=== PATIENT | female | born 1955 | race Caucasian/White ===

== ENCOUNTER → 2016-09-23 | Outpatient (CLI) | payer BC ==
--- NOTE | 2016-09-23 10:33 | US ---
EXAMINATION TYPE: US abdomen complete DATE OF EXAM: 09/23/2016 9:58 AM COMPARISON: 08/07/12 CLINICAL HISTORY: R10.11 RUQ PAIN,R11.0 NAUSEA, Z90.49. Right sided back pain that extends to front o f abd with nausea, cholecystectomy EXAM MEASUREMENTS: Liver Length: 13.9 cm CBD: 0.5 cm Spleen: 9.7 cm Right Kidney: 9.4 x 3.8 x 3.9 cm Left Kidney: 10.9 x 5.3 x 5.2 cm Findings: Pancreas: wnl Liver: wnl, intercostal scanning due to bowel gas Gallbladder: surgically absent CBD: wnl Spleen: wnl Right Kidney: wnl Left Kidney: Parapelvic left renal cysts. No evidence for hydronephrosis. Upper IVC: wnl Abd Aorta: wnl The liver is homogenous. The intrahepatic portion of the IVC and proximal abdominal aorta are within normal limits. The gallbladder is surgically absent. Common bile duct is unremarkable. The visualiz ed portions of the pancreas are homogenous. The spleen is unremarkable. Kidneys are symmetric and f ree of hydronephrosis. Parapelvic left renal cysts. IMPRESSION: 1. Parapelvic left renal cyst without evidence for hydronephrosis.
== END ==
LOC: RADUSWWP 09:35
PROVIDERS: ATTEND Family Medicine
DX: N28.1 Cyst of kidney, acquired (principal); R11.0 Nausea; Z90.49 Acquired absence of other specified parts of digestive tract
CPT/HCPCS: 76700

== ENCOUNTER → 2017-05-12 | Outpatient (CLI) | payer BC ==
--- NOTE | 2017-05-12 12:40 | MM ---
Reason for exam: screening (asymptomatic). Last mammogram was performed 1 year and 1 month ago. History: Patient is postmenopausal. Family history of premenopausal breast cancer in maternal aunt at age 40. Took estrogen for 5 years beginning at age 49. Physical Findings: A clinical breast exam by your physician is recommended on an annual basis and results should be correlated with mammographic findings. MG Screening Mammo w CAD Bilateral CC and MLO view(s) were taken. Prior study comparison: April 24, 2016, bilateral MG screening mammo w CAD. April 19, 2015, bilateral MG screening mammo w CAD. There are scattered fibroglandular densities. No suspicious abnormality. No significant changes when compared with prior studies. ASSESSMENT: Negative, BI-RAD 1 RECOMMENDATION: Routine screening mammogram of both breasts in 1 year.
== END | disposition home or self-care (01) ==
LOC: RADMAMWWP 07:11
PROVIDERS: ATTEND Family Medicine
DX: Z12.31 Encounter for screening mammogram for malignant neoplasm of breast (principal)

== ENCOUNTER → 2018-05-22 | Outpatient (CLI) | payer BC ==
--- NOTE | 2018-05-25 13:35 | MM ---
Reason for exam: screening (asymptomatic). Last mammogram was performed 1 year ago. History: Patient is postmenopausal. Family history of premenopausal breast cancer in maternal aunt at age 40. Took estrogen for 5 years beginning at age 49. Physical Findings: A clinical breast exam by your physician is recommended on an annual basis and results should be correlated with mammographic findings. MG 3D Screening Mammo W/Cad Bilateral CC and MLO view(s) were taken. Prior study comparison: May 12, 2017, bilateral MG screening mammo w CAD. April 24, 2016, bilateral MG screening mammo w CAD. There are scattered fibroglandular densities. Focal asymmetry left breast 6.4cm from nipple. This finding is changed when compared with previous exams. ASSESSMENT: Incomplete: need additional imaging evaluation, BI-RAD 0 RECOMMENDATION: Special view mammogram of the left breast. If lesion persists on supplemental views, image directed ultrasound is recommended. [facility] will attempt to contact patient to return for supplemental views and ultrasound if indicated.
== END | disposition home or self-care (01) ==
LOC: RADMAMWWP 14:19
PROVIDERS: ATTEND Family Medicine
DX: Z12.31 Encounter for screening mammogram for malignant neoplasm of breast (principal)
CPT/HCPCS: 77063; 77067

== ENCOUNTER → 2018-05-26 | Outpatient (CLI) | payer BC ==
--- NOTE | 2018-05-28 08:55 | MM ---
Reason for exam: additional evaluation requested from abnormal screening. Last mammogram was performed less than 1 month ago. History: Patient is postmenopausal. Family history of premenopausal breast cancer in maternal aunt at age 40. Took estrogen for 5 years beginning at age 49. Physical Findings: Nurse did not find any significant physical abnormalities on exam. MG 3D Work Up W/Cad LT Spot compression CC, spot compression MLO, and ML view(s) were taken of the left breast. Prior study comparison: May 22, 2018, bilateral MG 3d screening mammo w/cad. May 12, 2017, bilateral MG screening mammo w CAD. There are scattered fibroglandular densities. No distinct lesion persists on additional views. ASSESSMENT: Negative, BI-RAD 1 RECOMMENDATION: Return to routine screening mammogram schedule for both breasts.
== END | disposition home or self-care (01) ==
LOC: RADMAMWWP 15:39
PROVIDERS: ATTEND Family Medicine
DX: R92.8 Other abnormal and inconclusive findings on diagnostic imaging of breast (principal)
CPT/HCPCS: 77061; 77065

== ENCOUNTER → 2018-08-11 | Outpatient (CLI) | payer BC ==
--- NOTE | 2018-08-11 13:03 | US ---
EXAMINATION TYPE: US abdomen complete DATE OF EXAM: 08/11/2018 COMPARISON: CT abdomen and pelvis dated 05/04/2013. CLINICAL HISTORY: R10.11 right upper quadrant pain. EXAM MEASUREMENTS: Liver Length: 13.3 cm Gallbladder Wall: Surgically absent cm CBD: 0.4 cm Spleen: 9.4 cm Right Kidney: 9.8 x 4.8 x 5.3 cm Left Kidney: 11.9 x 5.4 x 5.8 cm Pancreas: visualized portions wnl Liver: wnl Gallbladder: Surgically absent CBD: wnl Spleen: wnl Right Kidney: No hydronephrosis or masses seen Left Kidney: Cystic structures lower pole, no definite stone seen. Upper IVC: wnl Abd Aorta: wnl The visualized liver is homogenous. The intrahepatic portion of the IVC and visualized distal abdomi nal aorta are within normal limits. There is no evidence of cholelithiasis. Common bile duct is unr emarkable. The visualized portions of the pancreas are homogenous. The spleen is unremarkable. Kid neys are symmetric and free of hydronephrosis. Round anechoic areas centrally lower pole level left k idney correspond to stable simple parapelvic cysts on comparison CT. No new suspicious renal lesions are seen. IMPRESSION: Status post cholecystectomy changes redemonstrated. No acute finding is evident to accoun t for patient's symptoms.
== END | disposition home or self-care (01) ==
LOC: RADUSWWP 07:25
PROVIDERS: ATTEND Family Medicine
DX: R10.11 Right upper quadrant pain (principal); Z90.49 Acquired absence of other specified parts of digestive tract
CPT/HCPCS: 76700

== ENCOUNTER → 2019-09-02 | Outpatient (CLI) | payer BC ==
--- NOTE | 2019-09-03 11:51 | MM ---
Reason for exam: screening (asymptomatic). Last mammogram was performed 1 year and 3 months ago. History: Patient is postmenopausal. Family history of premenopausal breast cancer in maternal aunt at age 40. Took estrogen for 5 years beginning at age 49. Physical Findings: A clinical breast exam by your physician is recommended on an annual basis and results should be correlated with mammographic findings. MG 3D Screening Mammo W/Cad Bilateral CC and MLO view(s) were taken. Prior study comparison: May 26, 2018, left breast MG 3d work up w/cad LT. May 22, 2018, bilateral MG 3d screening mammo w/cad. There are scattered fibroglandular densities. No suspicious abnormality. No significant changes when compared with prior studies. ASSESSMENT: Negative, BI-RAD 1 RECOMMENDATION: Routine screening mammogram of both breasts in 1 year.
== END | disposition home or self-care (01) ==
LOC: RADMAMWWP 07:40
PROVIDERS: ATTEND Family Medicine
DX: Z12.31 Encounter for screening mammogram for malignant neoplasm of breast (principal)
CPT/HCPCS: 77063; 77067

== ENCOUNTER → 2020-05-01 | Outpatient (CLI) | payer BC | END | disposition home or self-care (01) | LOC: LABWHC1 14:22 | PROVIDERS: ATTEND Nurse Practitioner Family | DX: Z20.828 Contact with and (suspected) exposure to other viral communicable diseases (principal) | CPT/HCPCS: U0003; C9803 ==

== ENCOUNTER → 2020-10-17 | Outpatient (CLI) | payer BC ==
--- NOTE | 2020-10-18 14:44 | MM ---
Reason for exam: screening (asymptomatic). Last mammogram was performed 1 year and 2 months ago. History: Patient is postmenopausal. Family history of premenopausal breast cancer in maternal aunt at age 40. Took hormonal contraceptives for 2 years. Took estrogen for 5 years beginning at age 49. Physical Findings: A clinical breast exam by your physician is recommended on an annual basis and results should be correlated with mammographic findings. MG 3D Screening Mammo W/Cad Bilateral CC and MLO view(s) were taken. Prior study comparison: September 02, 2019, bilateral MG 3d screening mammo w/cad. May 26, 2018, left breast MG 3d work up w/cad LT. There are scattered fibroglandular densities. There is no discrete abnormality. No significant changes when compared with prior studies. ASSESSMENT: Negative, BI-RAD 1 RECOMMENDATION: Routine screening mammogram of both breasts in 1 year.
== END | disposition home or self-care (01) ==
LOC: RADMAMWWP 16:10
PROVIDERS: ATTEND Family Medicine
DX: Z12.31 Encounter for screening mammogram for malignant neoplasm of breast (principal)
CPT/HCPCS: 77063; 77067

== ENCOUNTER → 2020-11-09 | Outpatient (CLI) | payer BC | END | disposition home or self-care (01) | LOC: LABWHC1 10:53 | PROVIDERS: ATTEND Family Medicine | DX: R09.81 Nasal congestion (principal) | CPT/HCPCS: U0003; C9803 ==

== ENCOUNTER → 2022-03-18 | Outpatient (CLI) | payer MEDICARE ==
--- NOTE | 2022-03-18 15:50 | MM ---
Reason for Exam: Screening (asymptomatic). Last mammogram was performed 1 year(s) and 5 month(s) ago. Patient History: Menarche at age 13. First Full-Term at age 25. Hysterectomy at age 44. Postmenopausal. Patient has history of breast feeding. Estrogen for 5 years from age 49 until age 54. Patient used Hormonal Contraceptives for 2 years. Maternal aunt had breast cancer, age 40. Risk Values: Ailyn 5 year model risk: 1.5%. NCI Lifetime model risk: 5.6%. Prior Study Comparison: 04/24/2016 Bilateral Screening Mammogram, [facility]. 05/12/2017 Bilateral Screening Mammogram, [facility]. 05/22/2018 Bilateral Screening Mammogram, [facility]. 05/26/2018 Left Diagnostic Mammogram, [facility]. 09/02/2019 Bilateral Screening Mammogram, [facility]. 10/17/2020 Bilateral Screening Mammogram, [facility]. Tissue Density: There are scattered fibroglandular densities. Overall Assessment: Negative, BI-RAD 1 Management: Screening Mammogram of both breasts in 1 year. A clinical breast exam by your physician is recommended on an annual basis and results should be correlated with mammographic findings. Electronically signed and approved by: Yvon Alcantara DO
== END | disposition home or self-care (01) ==
LOC: RADMAMWWP 13:02
PROVIDERS: ATTEND Family Medicine
DX: Z12.31 Encounter for screening mammogram for malignant neoplasm of breast (principal); Z78.0 Asymptomatic menopausal state; Z80.3 Family history of malignant neoplasm of breast
CPT/HCPCS: 77063; 77067

== ENCOUNTER → 2022-04-25 | Outpatient (CLI) | payer MEDICARE ==
--- NOTE | 2022-04-25 10:19 | BD ---
EXAMINATION TYPE: Axial Bone Density DATE OF EXAM: 04/25/2022 COMPARISON: NONE CLINICAL HISTORY: 67 years year old Female. ICD-10 CODE: M19.90, Z87.39 OSTEOPORO Height: 4 FT 11 1/2 IN Weight: 152 FRAX RISK QUESTIONS: Alcohol (3 or more units per day): NO Family History (Parent hip fracture): NO Glucocorticoids (More than 3mos): NO (Ex: prednisone, prednisolone, methylprednisolone, dexamethasone, and hydrocortisone). History of Fracture in Adulthood: NO Secondary Osteoporosis: 1. Type 1 Diabetes: NO 2. Hyperthyroidism: NO 3. Menopause before 45: NO 4. Malnutrition: NO 5. Chronic liver disease: NO Rheumatoid Arthritis: NO Current Tobacco Use: NO RISK FACTORS HISTORY OF: Surgery to Spine/Hip(right/left)/Wrist (right/left): NO Family History of Osteoporosis: NO Active: NO Diet low in dairy products/other sources of calcium: NO Postmenopausal woman: YES Take estrogen and/or progesterone medications: NO Lost more than 2 inches in height since high school: NO Frequent falls: NO Poor Health: GOOD Hyperparathyroidism: NO Adrenal Insufficiency: NO MEDICATIONS: Additional Medications: TOPAMAX, FLONASE Additional History: EXAM MEASUREMENTS: Bone mineral densitometry was performed using the [employer] System. Bone mineral density as measured about the Lumbar spine is: ----- L1-L4(G/cm2): 0.861 T Score Values are as follows: ----- L1: -3.2 ----- L2: -3.4 ----- L3: -2.0 ----- L4: -2.4 ----- L1-L4: -2.7 PREV LONG AGO Bone mineral density about the R hip (g/cm2): 0.689 Bone mineral density about the L hip (g/cm2): 0.634 T Score values are as follows: -----R Neck: -2.5 -----L Neck: -2.9 -----R Total: -1.9 -----L Total: -2.1 PREV LONG AGO FRAX%s: The graph provided illustrates a 15.8 % chance for a major osteoporotic fx and a 4.3 % chance for the hips probability for fx in 10 years time. IMPRESSION: Osteoporosis (T Score less than -2.5). There is increased fracture risk and therapy is usually indicated based on age. Re-Screen 1-2 years. NOTE: T-SCORE=SD OF THE YOUNG ADULT MEAN.
== END | disposition home or self-care (01) ==
LOC: RADBDWWP 09:39
PROVIDERS: ATTEND Family Medicine
DX: M81.0 Age-related osteoporosis without current pathological fracture (principal)
CPT/HCPCS: 77080

== ENCOUNTER → 2023-03-19 | Outpatient (CLI) | payer MEDICARE, OTHER ==
--- NOTE | 2023-03-20 08:54 | MM ---
Reason for Exam: Screening (asymptomatic). Last screening mammogram was performed 12 month(s) ago. Patient History: Menarche at age 13. First Full-Term at age 25. Hysterectomy at age 44. Postmenopausal. Patient has history of breast feeding. Estrogen for 5 years from age 49 until age 54. Patient used Hormonal Contraceptives for 2 years. Maternal aunt had breast cancer, age 40. Risk Values: Ailyn 5 year model risk: 1.5%. NCI Lifetime model risk: 5.4%. Prior Study Comparison: 09/02/2019 Bilateral Screening Mammogram, [facility]. 10/17/2020 Bilateral Screening Mammogram, [facility]. 03/18/2022 Bilateral MG 3D screening mammo w/cad, [facility]. Tissue Density: There are scattered fibroglandular densities. Findings: Analyzed By CAD. There is no suspicious group of microcalcifications or new suspicious mass in either breast. Overall Assessment: Negative, BI-RAD 1 Management: Screening Mammogram of both breasts in [address] [facility] will attempt to contact patient to return for supplemental views and ultrasound if indicated. Patient should continue monthly self-breast exams. A clinical breast exam by your physician is recommended on an annual basis. This exam should not preclude additional follow-up of suspicious palpable abnormalities. Note on Ailyn scores and lifetime risk: 1. A Ailyn score greater than 3% is considered moderate risk. If this is the case, consider specialist referral to assess eligibility for a risk reducing agent. 2. If overall lifetime risk for the development of breast cancer is 20% or higher, the patient may qualify for future screening with alternating mammogram and breast MRI. Electronically signed and approved by: Yvon Alcantara DO
== END | disposition home or self-care (01) ==
LOC: RADMAMWWP 10:43
PROVIDERS: ATTEND Internal Medicine
DX: Z12.31 Encounter for screening mammogram for malignant neoplasm of breast (principal); Z78.0 Asymptomatic menopausal state; Z80.3 Family history of malignant neoplasm of breast
CPT/HCPCS: 77063; 77067

== ENCOUNTER → 2023-03-31 | Outpatient (CLI) | payer MEDICARE, OTHER ==
--- NOTE | 2023-03-31 11:22 | CA ---
Stress Echo Report Luzma Leal Age: 68 Gender: F : 1955 Exam Date: 03/31/2023 10:39 Exam Location: [facility] Ht (in): 59 Wt (lb): 150 Ordering Physician: Gurpreet Veloz MD Referring Physician: MANUELA TOMLIN,, Care Clinician: Syl Mayberry RDCS Technologist Procedure CPT: Indication: R07.89 other chest pain ICD-9 Codes: Rhythm: Patient History: Atypical angina Cardiac Medications: Medications in past 24 hours: Contrast: Stress Results Protocol: Rocky Total dose(mL): Exercise Duration (min:sec): [address] Depression (mm): Angina Score: Watters Score: METS: 7.3 Resting HR: 92 Resting BP: 138 / 90 Peak HR: 162 Peak BP: 192 / 79 Max Predicted HR: 153 106 % Max Predicted HR Target HR: 130 Double Product: 85165 Stress Summary: The patient's target heart rate was achieved BP Response: Normal Reason for Termination: Reached target heart rate or work-load Cardiac Symptoms: Test terminated after reaching target heart rate (85% max predicted) ECG Analysis Resting ECG: Normal sinus rhythm, normal ECG Stress ECG: No abnormal ST/T wave changes with exercise Arrhythmia: None Echo Analysis Resting Echo: Normal resting echocardiogram. Peak Echo Analysis: Normal treadmill stress echocardiogram. MEASUREMENTS (Male/Female) Normal Values CONCLUSIONS No ECG evidence of ischemia with exercise. Normal treadmill stress echocardiogram. Dr. Marian Solares MD (Electronically Signed) Final Date: 31 March 2023 11:21
== END | disposition home or self-care (01) ==
LOC: RADNMMAIN 10:16
PROVIDERS: ATTEND Internal Medicine
DX: R07.89 Other chest pain (principal)
CPT/HCPCS: 93351

== ENCOUNTER → 2023-06-04 | Outpatient (CLI) | payer MEDICARE, OTHER ==
--- NOTE | 2023-06-04 09:06 | MR ---
EXAMINATION TYPE: MR brain wo/w con DATE OF EXAM: 06/04/2023 8:44 AM CLINICAL INDICATION:Female, 68 years old with history of 346.9, G43.09 Migraines, Migraines. COMPARISON: None TECHNIQUE: Multi planar, multi sequence imaging was performed through the brain including: T1, T2, In version recovery, susceptibility weighted imaging and gradient echo imaging and Diffusion weighted im aging. The patient was then given intravenous contrast and multi planar, T1 fat-saturation images wer e obtained. IV Contrast: 6.5 cc Gadavist FINDINGS: The lewis-white junctions, ventricular system, basal cisterns appear unremarkable. Diffusion-weighted imaging shows no evidence of restricted diffusion to suggest acute/subacute infarct. Intracranial ar terial flow voids are maintained. Midline structures show no abnormality. Scattered foci of high T2 s ignal intensity are seen within the periventricular white matter. The susceptibility weighted images do not reveal any evidence for micro-hemorrhage. After administration of gadolinium, no abnormal enha ncement is seen. The bone marrow signal is within normal limits. Paranasal sinuses and mastoid air cells: No significant paranasal sinus disease. Bilateral mastoid ai r cell effusions. Visualized orbits: Orbital contents are intact. IMPRESSION: 1. No evidence of intracranial mass, acute/subacute infarct, or abnormal enhancement. 2. Trace bilateral mastoid air cell effusions.
== END | disposition home or self-care (01) ==
LOC: RADMRIMAIN 07:54
PROVIDERS: ATTEND Internal Medicine
DX: G43.909 Migraine, unspecified, not intractable, without status migrainosus (principal); H74.8X3 Other specified disorders of middle ear and mastoid, bilateral
CPT/HCPCS: 70553; A9585

== ENCOUNTER 2024-02-03 06:19 | Day surgery (SDC) | payer MEDICARE, OTHER ==
[2024-01-28 15:39] VITALS: BMI 25.4
[~2024-02-03 06:19] MED LIST: LIDOCAINE 1% (10MG/ML) FOR IV START INTRADERMA PRN
[2024-02-03 06:52] VITALS: TEMP 97.7
[2024-02-03] MEDS: LACTATED RINGERS 1,000 ML IV SCH (06:58)
[2024-02-03] MEDS: IV FLUID CONTINUATION 1,000 ML IV ONE (06:58)
[2024-02-03] MEDS ORDERED: PROPOFOL 10 MG/ML 20 ML VIAL IV ONE (07:50)
[2024-02-03] MEDS ORDERED: LIDOCAINE 1% INJ 10MG/ML (20 ML MDV) ONE (07:50)
--- NOTE | 2024-02-03 08:14 | P.PCN ---
Date of Procedure: 02/03/24 Procedure(s) Performed: Brief history: Patient is a pleasant 68-year-old white female scheduled for an elective upper endoscopy as well as colonoscopy as a part of evaluation of GERD/screening for colon cancer Procedure performed: Esophagogastroduodenoscopy with biopsy Colonoscopy Preoperative diagnosis: GERD Screening for colon cancer Anesthesia: [facility] Procedure: After informed consent was obtained from the patient was brought into the endoscopy unit and IV sedation was administered by anesthesia under continuous monitoring. Initially upper endoscopy was done. The Olympus GF 160 video endoscope was inserted inserted into the mouth and esophagus intubated without any difficulty and was gradually advanced into the stomach and duodenum and carefully examined. The bulb and second part of the duodenum appeared normal. The scope was then withdrawn into the stomach adequately insufflated with air and upon careful examination the antrum and mid gastritis and biopsies were done from this area. Mucosa of the body, cardia and fundus appeared normal. The scope was then withdrawn into the esophagus. The GE junction was located at 40 cm to the incisors. There was a 3 mm tongues of Rivera's appearing mucosa proximal to the GE junction that was biopsied. Rest of the esophagus appeared normal. Patient tolerated the procedure well. At this time the patient continued to remain sedation. Initial digital rectal examination was normal. Olympus CF 160 video colonoscope was then inserted into the rectum and gradually advanced to the cecum without any difficulty. Careful examination was performed as the scope was gradually being withdrawn. The prep was excellent. The cecum, ascending colon, transverse colon, descending colon, sigmoid colon and rectum appeared normal. Scattered sigmoid diverticulosis. Retroflexion was performed in the rectum and no lesions were noted. Patient tolerated the procedure well. Impression: 1. Upper endoscopy revealed mild antral gastritis, small hiatal hernia and short segment Rivera's esophagus. 2. Colonoscopy revealed scattered sigmoid diverticulosis but no evidence of colorectal neoplasia Recommendations: Findings of this examination were discussed with the patient as well as her family. Follow-up with the biopsy results. If the biopsy reveals Rivera's esophagus she can have repeat upper endoscopy in 3 years. She was advised to have repeat screening colonoscopy in 10 years.
[2024-02-03 08:50] VITALS: BP 145/88; PULSE 84; RESP 16
== END 2024-02-03 09:06 | disposition home or self-care (01) ==
LOC: ORWHC2ENDO 06:19
PROVIDERS: ATTEND Internal Medicine Gastroenterology
DX: Z12.11 Encounter for screening for malignant neoplasm of colon (principal); K29.50 Unspecified chronic gastritis without bleeding; K44.9 Diaphragmatic hernia without obstruction or gangrene; K57.30 Diverticulosis of large intestine without perforation or abscess without bleeding; K22.70 Barrett's esophagus without dysplasia; K21.9 Gastro-esophageal reflux disease without esophagitis; G43.909 Migraine, unspecified, not intractable, without status migrainosus; Z91.040 Latex allergy status; Z88.5 Allergy status to narcotic agent; Z79.899 Other long term (current) drug therapy
CPT/HCPCS: 88305; 43239; J2001; J2704; G0121

== ENCOUNTER → 2024-04-27 | Outpatient (CLI) | payer MEDICARE, OTHER ==
--- NOTE | 2024-04-27 10:09 | BD ---
EXAMINATION TYPE: Axial Bone Density DATE OF EXAM: 04/27/2024 CLINICAL HISTORY: 69 years old Female. ICD-10 CODE: Z78.0 POST MENOPAUSAL WITHOUT HRT Height: 60 Weight: 130 FRAX RISK QUESTIONS: Alcohol (3 or more units per day): no Family History (Parent hip fracture): no Glucocorticoids (More than 3mos): no (Ex: prednisone, prednisolone, methylprednisolone, dexamethasone, and hydrocortisone). History of Fracture in Adulthood: no Secondary Osteoporosis: 1. Type 1 Diabetes: no 2. Hyperthyroidism: no 3. Menopause before 45: no 4. Malnutrition: no 5. Chronic liver disease: no Rheumatoid Arthritis: no Current Tobacco Use: no RISK FACTORS HISTORY OF: Surgery to Spine/Hip(right/left)/Wrist (right/left): no MEDICATIONS: Osteoporosis Medications: fosamax How Lon months EXAM MEASUREMENTS: Bone mineral densitometry was performed using the [employer] System. Bone mineral density as measured about the Lumbar spine is: ----- L1-L4(G/cm2): 0.888 T Score Values are as follows: ----- L1: -3.4 ----- L2: -3.1 ----- L3: -1.9 ----- L4: -1.6 ----- L1-L4: -2.4 Z Score Values are as follows: ----- L1: -1.6 ----- L2: -1.3 ----- L3: -0.1 ----- L4: 0.2 ----- L1-L4: -0.6 Bone mineral density has: increased 3.1 % since study of: 04.25.2022 Bone mineral density about the R hip (g/cm2): 0.819 Bone mineral density about the L hip (g/cm2): 0.783 T Score values are as follows: -----R Neck: -2.2 -----L Neck: -2.8 -----R Total: -1.5 -----L Total: -1.8 Z Score values are as follows: -----R Neck: -0.5 -----L Neck: -1.1 -----R Total: 0.0 -----L Total: -0.3 Bone mineral density has: increased 6.0% since study of: 10.6.2021 FRAX%s: The graph provided illustrates a 16.8 % chance for a major osteoporotic fx and a 4.8 % chance for the hips probability for fx in 10 years time. IMPRESSION: Osteopenia (T Score between -2.5 and -1). There is slightly increased risk of fracture and the patient may be considered for treatment. Re-Screen 2-5 years. NOTE: T-SCORE=SD OF THE YOUNG ADULT MEAN. [facility], , 04/27/2024 10:07 AM
--- NOTE | 2024-04-28 12:32 | MM ---
Reason for Exam: Screening (asymptomatic). Last mammogram was performed 1 year(s) and 2 month(s) ago. Patient History: Menarche at age 13. First Full-Term at age 25. Hysterectomy at age 44. Postmenopausal. Patient has history of breast feeding. Estrogen for 5 years from age 49 until age 54. Patient used Hormonal Contraceptives for 2 years. Maternal aunt had breast cancer, age 40. Risk Values: Ailyn 5 year model risk: 1.5%. NCI Lifetime model risk: 5.0%. Prior Study Comparison: 10/17/2020 Bilateral Screening Mammogram, [facility]. 03/18/2022 Bilateral MG 3D screening mammo w/cad, [facility]. 03/19/2023 Bilateral MG 3D screening mammo w/cad, [facility]. Tissue Density: There are scattered areas of fibroglandular density. Findings: Analyzed By CAD. There is no suspicious group of microcalcifications or new suspicious mass in either breast. Overall Assessment: Negative, BI-RAD 1 Management: Screening Mammogram of both breasts in 1 year. . Patient should continue monthly self-breast exams. A clinical breast exam by your physician is recommended on an annual basis. This exam should not preclude additional follow-up of suspicious palpable abnormalities. Note on Ailyn scores and lifetime risk: 1. A Ailyn score greater than 3% is considered moderate risk. If this is the case, consider specialist referral to assess eligibility for a risk reducing agent. 2. If overall lifetime risk for the development of breast cancer is 20% or higher, the patient may qualify for future screening with alternating mammogram and breast MRI. [facility], , 04/28/2024 12:29 PM. Electronically signed and approved by: Uday Miller M.D. Radiologis
== END | disposition home or self-care (01) ==
LOC: RADMAMWWP 07:36
PROVIDERS: ATTEND Internal Medicine
DX: Z12.31 Encounter for screening mammogram for malignant neoplasm of breast (principal); M81.0 Age-related osteoporosis without current pathological fracture; M85.89 Other specified disorders of bone density and structure, multiple sites; R92.323 Mammographic fibroglandular density, bilateral breasts; Z78.0 Asymptomatic menopausal state; Z80.3 Family history of malignant neoplasm of breast
CPT/HCPCS: 77063; 77067; 77080

== ENCOUNTER → 2025-01-07 | Outpatient (CLI) | payer MEDICARE, OTHER ==
--- NOTE | 2025-01-07 13:57 | XR ---
EXAMINATION TYPE: XR Hip Bilateral and AP pelvis DATE OF EXAM: 01/07/2025 1:31 PM COMPARISON: None. CLINICAL INDICATION: Female, 69 years old with history of M25.552 hip pain; PHH, pain TECHNIQUE: XR Hip Bilateral and AP pelvis; hip was examined in the frontal and lateral projections an d a AP pelvis. FINDINGS: No evidence for acute process, joint dislocation or significant soft tissue swelling. Osteo phyte formation of the superior acetabulum of the hip. There is mild joint space narrowing. IMPRESSION: 1. No evidence for acute process. 2. Mild hip osteoarthrosis. [facility], , 01/07/2025 1:55 PM
== END | disposition home or self-care (01) ==
LOC: RADXRMAIN 13:13
PROVIDERS: ATTEND Internal Medicine
DX: M16.0 Bilateral primary osteoarthritis of hip (principal)
CPT/HCPCS: 73521